=== PATIENT | male | born 1970 | race Caucasian/White ===

== ENCOUNTER 2016-10-10 21:04 | Observation (INO) | payer OTHER ==
[2016-10-10 21:00] VITALS: PULSE 69
[2016-10-10 21:30] VITALS: BP 144/77; PULSE 67; RESP 18; TEMP 97.7; O2SAT 99
[2016-10-10 22:00] VITALS: PULSE 59
--- NOTE | 2016-10-10 22:11 | HHI.HP ---
HPI Service CP Hospitalists Primary Care Physician Non-Staff Admission Diagnosis nausea, vomiting, LUQ cramping, elevated troponin Chief Complaint: N/V, LUQ pain Travel History International Travel<30 Days: No Contact w/Intl Traveler <30 Da: No History of Present Illness 45 y.o. relatively healthy WM transferred from [facility] due to n/v with +Trop I. Denies CP or SOB. has had intermittent N/V/D over last 2.5 weeks. No f/c. No other sick in household. Tried TUMS w/o relief. +a/w food intake. Last emesis appx 1 week ago. Hasn't been eating much over last week. EKG with no worrisome findings, but trop I modestly elevated. Pt has had intermittent GI issues for years, but generally resolves w/i a few days. He plays full court basketball 2-3x/week w/o chest pain including w/i last few days. No immed FH of CAD. Previous smoker Review of Systems Constitutional: DENIES: Diaphoretic episodes, Fatigue, Fever, Weight gain, Weight loss, Chills, Dizziness, Change in appetite, Night Sweats Endocrine: DENIES: Heat/cold intolerance, Polydipsia, Polyuria, Polyphagia Eyes: DENIES: Blurred vision, Diplopia, Eye inflammation, Eye pain, Vision loss , Photosensitivity, Double Vision Ears, nose, mouth, throat: DENIES: Tinnitus, Hearing loss, Vertigo, Nasal discharge, Oral lesions, Throat pain, Hoarseness, Ear Pain, Running Nose, Epistaxis, Sinus Pain, Toothache, Odynophagia Respiratory: DENIES: Apneas, Cough, Snoring, Wheezing, Hemoptysis, Sputum production, Shortness of breath Cardiovascular: DENIES: Chest pain, Palpitations, Syncope, Dyspnea on Exertion , PND, Lower Extremity Edema, Orthopnea, Claudication Gastrointestinal: COMPLAINS OF: Abdominal pain, Diarrhea, Nausea, Reflux, Vomiting, Anorexia, DENIES: Black stools, Bloody stools, BRB per rectum, Constipation, GERD, Difficulty Swallowing, See HPI Musculoskeletal: DENIES: Joint pain, Muscle aches, Stiffness, Joint Swelling, Back pain, Neck pain Integumentary: DENIES: Abnormal pigmentation, Nail changes, Pruritus, Rash Hematologic/lymphatic: DENIES: Bruising, Lymphadenopathy Immunologic/allergic: DENIES: Eczema, Urticaria Neurologic: DENIES: Abnormal gait, Headache, Localized weakness, Paresthesias, Seizures, Speech Problems, Tremor, Poor Balance Past Family Social History Past Medical History Negative per pt Past Surgical History Vasectomy Reported Medications none Allergies: Coded Allergies: No Known Allergies (Unverified , 10/10/16) Family History No CAD except in GF who was 80 y.o. when dx Social History No tobacco in 3 yrs, smoked 1ppd for appx 20 yrs prior; uses Ecig now No regular EtOH Denies Illicits Works in golf sales Physical Exam Physical Exam GENERAL: This is a well-nourished, well-developed patient, in no apparent distress. a/o, cooperative SKIN: No rashes, ecchymoses or lesions. Cool and dry. HEAD: Atraumatic. Normocephalic. No temporal or scalp tenderness. EYES: Pupils equal round and reactive. Extraocular motions intact. No scleral icterus. No injection or drainage. ENT: Nose without bleeding, purulent drainage or septal hematoma. Throat without erythema, tonsillar hypertrophy or exudate. Uvula midline. Airway patent. NECK: Trachea midline. No JVD or lymphadenopathy. Supple, nontender, no meningeal signs. CARDIOVASCULAR: Regular rate and rhythm without murmurs, gallops, or rubs. RESPIRATORY: Clear to auscultation. Breath sounds equal bilaterally. No wheezes , rales, or rhonchi. GASTROINTESTINAL: Abdomen soft, non-tender, nondistended. No hepato-splenomegaly , or palpable masses. No guarding. BS wnl. MUSCULOSKELETAL: Extremities without clubbing, cyanosis, or edema. No joint tenderness, effusion, or edema noted. No calf tenderness. Negative Homans sign bilaterally. NEUROLOGICAL: Awake and alert. Cranial nerves II through XII intact. Motor and sensory grossly within normal limits. Five out of 5 muscle strength in all muscle groups. Normal speech. Imaging see [facility] visit Assessment and Plan Problem List: (1) Troponin level elevated Status: Acute Plan: ? etiology. EKG OK and no CP. Will check another set enzymes. Likely stress test tomorrow AM Cardiology consulted. (2) Abdominal pain Status: Acute Plan: will try zofran. labs, imaging reviewed from [facility] visit Code Status full Discussed Condition With Pt and ER MD Tong,Collins Kingsley MD PhD October 10, 2016 22:11
[2016-10-10] MEDS ORDERED: ONDANSETRON HCL 4 MG/2 ML VIAL IV PUSH PRN (22:15)
[2016-10-10 23:00] VITALS: PULSE 60
[2016-10-10 23:45] VITALS: PULSE 77
[2016-10-11] VITALS (24 sets, daily range): BP systolic 121–155; BP diastolic 60–91; PULSE 47–78; RESP 18; TEMP 97.2–98.4; O2SAT 97–99
[2016-10-11] MEDS: PANTOPRAZOLE SOD 40 MG DELAYED RELEASE TAB PO SCH (05:34)
[2016-10-11] MEDS ORDERED: SODIUM CHLOR 0.9% 1000 ML INJ 1,000 ML IV SCH (08:40)
[2016-10-11] MEDS: ASPIRIN EC 325 MG TABEC PO SCH (09:21)
--- NOTE | 2016-10-11 09:48 | MB ---
cc: MARKOS ELIAS DATE OF CONSULTATION: 10/11/2016 INDICATION Elevated troponin. HISTORY OF PRESENT ILLNESS This is a very nice 45-year-old gentleman who was actually transferred from the [facility] secondary to slightly elevated troponin. The patient over the course of the past two and a half weeks had some intermittent nausea, vomiting, diarrhea. He has had decreased p.o. intake. He has tried Tums. He says his last meal was actually on Sunday. He is pretty dehydrated and finally his decided to talk him into going to the emergency department. There they bart a troponin, was 0.14 and he was transferred over here. He denies any chest pain. He is very active, actually plays full court basketball a couple times a week without any chest pain symptoms. He has no significant early family history of coronary disease or any cardiovascular risk factors. He is currently chest pain free. Electrocardiogram is unremarkable. PAST MEDICAL HISTORY Negative. ALLERGIES No known drug allergies. FAMILY HISTORY Denies any family history of early coronary artery disease, sudden cardiac . SOCIAL HISTORY He smoked about a pack a day for 20 years but stopped smoking about 3 years ago. Denies any alcohol, or drug use. REVIEW OF SYSTEMS 12-point review of systems was performed and negative unless otherwise noted in the history of present illness. PHYSICAL EXAMINATION VITAL SIGNS: Temperature 97, heart rate is in the 50s, blood pressure is 127/76 mmHg. GENERAL: In general alert and oriented x3, in no acute distress. HEENT: Exam shows pupils reactive to light and accommodation. Extraocular movements are intact. NECK: No elevation in jugular venous distention. No thyromegaly or lymphadenopathy. No carotid bruits. LUNGS: Clear to auscultation bilaterally. CARDIOVASCULAR: Regular rate and rhythm without murmurs, rubs or gallops. ABDOMEN: Nontender, nondistended. Good bowel sounds. No hepatosplenomegaly. EXTREMITIES: No clubbing, cyanosis or edema. Good peripheral pulses. Cranial nerves intact. Motor sensory grossly intact. LABORATORY DATA Troponin 0.14. ELECTROCARDIOGRAM Sinus bradycardia. No ischemic changes. ASSESSMENT 1. Elevated troponin. 2. Nausea, vomiting. PLAN The patient has very atypical presentation for acute coronary syndrome. Electrocardiogram is unremarkable. His only real risk factor is prior smoking history. He is active without any exertional chest pain, although this in theory could be an anginal equivalent. I do not feel that this is the case. I suspect that he is just severely dehydrated and he has some retention of troponin from excretion. We will see where the troponin trends. If it stays in this intermediate level, I think a stress test would be fairly reasonable. I would recommend aggressive hydration. If the troponin trends significantly higher, then he will need a heart catheterization. He is bradycardic but I suspect that is due to good cardiac index in young age. MD PASTORA Mckay/BURTON /8:41 AM /9:11 AM
--- NOTE | 2016-10-11 10:13 | EC ---
Study Study Date:10/11/2016 STUDY CONCLUSIONS SUMMARY - Left ventricle: The cavity size was normal. Wall thickness was normal. Systolic function was normal. The estimated ejection fraction was in the range of 55% to 60%. Wall motion was normal; there were no regional wall motion abnormalities. - Tricuspid valve: Mild regurgitation. If LV function is below 40, please consider prescribing an ACEI or ARB or document rationale for non-use. PROCEDURE DATA STUDY STATUS: Elective. Procedure: Transthoracic echocardiography. Image quality was good. Scanning was performed from the parasternal, apical, and subcostal acoustic windows. Study completion: The patient tolerated the procedure well. Transthoracic echocardiography. M-mode, complete 2D, complete spectral Doppler, and color Doppler. Patient status: Inpatient. CARDIAC ANATOMY LEFT VENTRICLE: The cavity size was normal. Wall thickness was normal. Systolic function was normal. The estimated ejection fraction was in the range of 55% to 60%. Wall motion was normal; there were no regional wall motion abnormalities. AORTIC VALVE: Trileaflet; normal thickness leaflets. Doppler: Transvalvular velocity was within the normal range. There was no stenosis. No regurgitation. AORTA: Aortic root: The aortic root was normal in size. MITRAL VALVE: Structurally normal valve. Doppler: Transvalvular velocity was within the normal range. There was no evidence for stenosis. No regurgitation. LEFT ATRIUM: The atrium was normal in size. RIGHT VENTRICLE: The cavity size was normal. Wall thickness was normal. PULMONIC VALVE: Doppler: Transvalvular velocity was within the normal range. There was no evidence for stenosis. No regurgitation. TRICUSPID VALVE: Structurally normal valve. Doppler: Transvalvular velocity was within the normal range. Mild regurgitation. PULMONARY ARTERY: The main pulmonary artery was normal-sized. Systolic pressure was within the normal range. RIGHT ATRIUM: The atrium was normal in size. PERICARDIUM: There was no pericardial effusion. SYSTEMIC VEINS: Inferior vena cava: The vessel was normal in size. BASIC MEASUREMENTS ADULT NORMAL Left ventricle LV internal dimension, ED, chordal level, 50.7 mm 43-52 PLAX LV internal dimension, ES, chordal level, 36.8 mm 23-38 PLAX Fractional shortening, chordal level, PLAX *27 % >29 LV posterior wall thickness, ED 9.37 mm IVS/LVPW ratio, ED 1.06 <1.3 Ventricular septum Septal thickness, ED 9.92 mm Left atrium Anterior-posterior dimension 35 mm Right ventricle RV internal dimension, ED, PLAX 21.8 mm 19-38 DOPPLER MEASUREMENTS ADULT NORMAL Aortic valve Peak velocity, S 143 cm/s Mitral valve Peak E-wave velocity 53.3 cm/s Peak A-wave velocity 53.8 cm/s Peak E/A ratio 1 Tricuspid valve Regurgitant peak velocity 142 cm/s Peak RV-RA gradient, S 8 mm Hg Maximal regurgitant velocity 142 cm/s LEGEND: Mean values are shown as u=mean value. Asterisk (*) manley values outside specified normal range. Prepared and signed by Collin Devries [id number]
--- NOTE | 2016-10-11 14:40 | TR ---
Date Performed: 10/11/2016 Time Performed: 10:43:32 DOCTOR: Kevin Crook DRUG LIST: CLINICAL HISTORY: REASON FOR TEST: REASON FOR ENDING: OBSERVATION: CONCLUSION: WARREN PROTOCOL. NO CP OR SOB.Maximum JN=587 % Max HR Achieved=87.0% Maximum TO=139/8 4 Total Exercise Time=7:12 COMMENTS: Patient exercised using the Warren protocol. No electrocardiographic changes were seen to suggest ischemia. Hemodynamic response to exercise was normal. No significant arrhythmia was prese nt.
--- NOTE | 2016-10-11 16:39 | HHI.PR ---
Objective Vitals Vital Signs Date Time Temp Pulse Resp B/P Pulse Ox O2 Delivery O2 Flow Rate FiO2 10/11/16 16:07 98.4 71 18 145/86 97 10/11/16 10:00 74 10/11/16 09:00 75 10/11/16 08:00 75 10/11/16 08:00 97.9 65 18 155/88 97 10/11/16 06:00 54 10/11/16 05:00 50 10/11/16 04:00 50 10/11/16 03:37 97.2 56 18 127/76 99 10/11/16 03:35 55 10/11/16 03:00 54 10/11/16 02:00 58 10/11/16 01:00 58 10/11/16 00:00 97.6 64 18 142/84 98 10/10/16 23:45 77 10/10/16 23:00 60 10/10/16 22:00 59 10/10/16 21:30 97.7 67 18 144/77 99 10/10/16 21:00 69 10/10/16 10/10/16 10/11/16 15:00 23:00 07:00 Output Total 800 ml Balance -800 ml Output Urine Total 800 ml # Bowel Movements 0 Other Results Laboratory Tests Test 10/10/16 22:19 Troponin I 0.14 NG/ML Imaging CT Abd/pelvis (10/10/16) 1. Hypodense liver characteristic of diffuse steatosis. 2. 16mm left adrenal gland nodule. 3. No evidence of acute intestinal abnormality, hydronephrosis or acute inflammatory disease. CXR (10/10/16) - No acute disease. Objective Remarks General: NAD, AAOx3 Chest: CTA Cardiac: Regular Abd: +BS, soft ND/NT Ext: No edema A/P Problem List: (1) Troponin level elevated Status: Acute Plan: - Pt transferred from [facility] on 10[facility]10[facility]16 with complaints of abdominal pain, N /V and diarrhea on/off x 2.5 weeks. - His workup revealed mildly elevated Troponin, the etiology of which was unclear. - Pt denies any CP and No EKG changes noted. - Cardiology consulted. - Pt had Stress test this morning which was reportedly negative. (2) Abdominal pain Status: Acute Plan: - CT Abd/pelvis was negative. - LFTs and Lipase at admission were WNL. - Mary Travis October 11, 2016 16:39 Shawn Trejo DO October 11, 2016 20:28
--- NOTE | 2016-10-11 17:34 | HHI.PR ---
Subjective Remarks Pt c/o N/V/D x 3 weeks. Pt states that this started after eating wings at a restaurants. Since that time he continues to have intermittent episodes of N/V/D. Pt's current episode started 2 days ago. Pt denies n/v/d today, but states that he is afraid to eat and develop n/v Pt did tolerate earing clears for dinner. Denies chest pain or palpitations. Objective Vitals Vital Signs Date Time Temp Pulse Resp B/P Pulse Ox O2 Delivery O2 Flow Rate FiO2 10/11/16 16:07 98.4 71 18 145/86 97 10/11/16 10:00 74 10/11/16 09:00 75 10/11/16 08:00 75 10/11/16 08:00 97.9 65 18 155/88 97 10/11/16 06:00 54 10/11/16 05:00 50 10/11/16 04:00 50 10/11/16 03:37 97.2 56 18 127/76 99 10/11/16 03:35 55 10/11/16 03:00 54 10/11/16 02:00 58 10/11/16 01:00 58 10/11/16 00:00 97.6 64 18 142/84 98 10/10/16 23:45 77 10/10/16 23:00 60 10/10/16 22:00 59 10/10/16 21:30 97.7 67 18 144/77 99 10/10/16 21:00 69 10/10/16 10/10/16 10/11/16 15:00 23:00 07:00 Output Total 800 ml Balance -800 ml Output Urine Total 800 ml # Bowel Movements [address] Abd/pelvis (10/10/16) 1. Hypodense liver characteristic of diffuse steatosis. 2. 16mm left adrenal gland nodule. 3. No evidence of acute intestinal abnormality, hydronephrosis or acute inflammatory disease. CXR (10/10/16) - No acute disease. Objective Remarks General: NAD, AAOx3 Chest: CTA Cardiac: Regular Abd: +BS, soft ND/NT Ext: No edema A/P Problem List: (1) Troponin level elevated Status: Acute Plan: - comgmt with Cardiology - negative stress test - Echocardiogram (5/10/17) --> EF 55% - troponins were elevated, but flat pattern (2) Abdominal pain Status: Acute Plan: - CT Abd/pelvis was negative. - LFTs and Lipase at admission were WNL. - continue IVFs - repeat labs in AM - start protonix, pt c/o acid reflux symptoms - request GI consult - NPO after MN, for possible EGD 10/12/16 Shawn Trejo DO October 11, 2016 17:34
--- NOTE | 2016-10-11 19:52 | EKG ---
Date Performed: 10/10/2016 Time Performed: 22:08:04 PTAGE: 45 years EKG: Sinus bradycardia with sinus arrhythmia IV conduction defect Abnormal ECG Compared to prior tracing no significant change DOCTOR: Charles Little Interpretating Date/Time 10/11/2016 19:50:57
[2016-10-11] MEDS: 1/2 NS + KCL 20 MEQ INJ 1,000 ML IV SCH (20:53)
[2016-10-12] VITALS (13 sets, daily range): BP systolic 122–148; BP diastolic 76–82; PULSE 50–74; RESP 18; TEMP 97.8–98.4; O2SAT 97–100
[2016-10-12 05:39] LABS: AUTOMATED NEUTROPHIL # 3.9 TH/MM3 (1.8-7.7); BASOPHIL % 0.4 % (0.0-2.0); EOSINOPHIL # 0.1 TH/MM3 (0-0.4); HEMATOCRIT 42.3 % (39.0-51.0); HEMO FLAGS DIFF FINAL; LYMPH % 35.6 % (9.0-44.0); LYMPHOCYTE # 2.7 TH/MM3 (1.0-4.8); MEAN CELL VOLUME 82.1 FL (80.0-100.0); MEAN CORPUSCULAR HEMOGLOBIN 28.4 PG (27.0-34.0); MEAN CORPUSCULAR HGB CONC 34.6 % (32.0-36.0); MONO % 11.9 % (0.0-8.0); NEUT % 51.1 % (16.0-70.0); PLATELET COUNT 222 TH/MM3 (150-450); RED BLOOD COUNT 5.15 MIL/MM3 (4.50-5.90); RED CELL DISTRIBUTION WIDTH 12.9 % (11.6-17.2); WHITE BLOOD COUNT 7.7 TH/MM3 (4.0-11.0)
[2016-10-12] MEDS: PANTOPRAZOLE SOD 40 MG DELAYED RELEASE TAB PO SCH (05:40)
[2016-10-12] MEDS: 1/2 NS + KCL 20 MEQ INJ 1,000 ML IV SCH (05:41)
[2016-10-12 06:01] LABS: BICARBONATE 29.2 MEQ/L (21.0-32.0); MAGNESIUM 2.3 MG/DL (1.5-2.5); POTASSIUM 4.1 MEQ/L (3.5-5.1)
[2016-10-12 07:31] LABS: INDIRECT BILIRUBIN 0.5 MG/DL (0.0-0.8); TOTAL BILIRUBIN ADULT 0.6 MG/DL (0.2-1.0)
[2016-10-12] MEDS: ASPIRIN EC 325 MG TABEC PO SCH (08:48)
--- NOTE | 2016-10-12 10:47 | PD.CONS ---
HPI History of Present Illness This is a 45 year old [gentleman] sent from [place] [facility] for intermittent n/v/ diarrhea, abdominal pain. He was found to have elevated Troponin but denies chest pain or cardiac issues and says he is active. 3 weeks ago he had onset n/ v and diarrhea, thought it was food poisining. Subsequently he experienced onset of mid abdominal pain and intermittent n/v along with periods of seeming improvement. THe diarrhea did resolve after about a week but he would still have abdominal discomfort and also borborygmus. He was able to control his symptoms somewhat just drinking ATkins shake for nutrition. 4 days ago he did have a formed BM. In the last week he has been having increased belching even with water consumption. The abdominal pain is now constant. For the last 5 days he has been urinating more than usual. Denies blood in stool, tarry stool. Never had colonoscopy or EGD. (Fadumo Milner) PFSH Past Medical History none Past Surgical History none (Fadumo Milner) Coded Allergies: No Known Allergies (Unverified , 10/10/16) Medications Current Medications Medications (Trade) Dose Ordered Sig/Saravanan Route PRN Reason Start Time Stop Time Status Last Admin Dose Admin Ondansetron HCl (Zofran Inj) 4 mg Q6H PRN IV PUSH n/v 10/10/16 22:15 Pantoprazole Sodium (Protonix) 40 mg DAILY@06 PO 10/11/16 06:00 10/12/16 05:40 Aspirin 325 mg 325 mg DAILY PO 10/11/16 09:00 10/12/16 08:48 Potassium Chloride/Sodium Chloride (1/2 NS + KCl 20 Meq Inj) 1,000 ml @ 100 mls/hr Q10H IV 10/11/16 17:30 10/12/16 05:41 Family History breast cancer - mother Social History rare ETOH former smoker, now uses ecig no drugs (Fadumo Milner) Review of Systems Constitutional: COMPLAINS OF: Fever, Chills Eyes: DENIES: Blurred vision Ears, nose, mouth, throat: DENIES: Hearing loss Respiratory: DENIES: Cough Cardiovascular: DENIES: Chest pain, Palpitations Gastrointestinal: COMPLAINS OF: Abdominal pain, Nausea, Vomiting, DENIES: Black stools, Bloody stools, Constipation, Diarrhea, Hematemesis Genitourinary: COMPLAINS OF: Urinary frequency Musculoskeletal: DENIES: Joint pain Integumentary: DENIES: Abnormal pigmentation Hematologic/lymphatic: DENIES: Bruising Neurologic: DENIES: Abnormal gait Psychiatric: DENIES: Confusion (Fadumo Milner) GI Exam Vitals I&O Vital Signs Date Time Temp Pulse Resp B/P Pulse Ox O2 Delivery O2 Flow Rate FiO2 10/12/16 06:00 52 10/12/16 05:00 50 10/12/16 04:00 52 10/12/16 03:33 98.4 61 18 122/77 97 10/12/16 03:00 56 10/12/16 02:00 52 10/12/16 01:00 74 10/12/16 00:00 50 10/11/16 23:30 98.1 47 18 121/60 97 10/11/16 23:00 53 10/11/16 22:00 58 10/11/16 21:00 66 10/11/16 20:00 66 10/11/16 19:25 98.1 67 18 137/91 97 10/11/16 19:00 68 10/11/16 17:52 75 10/11/16 16:07 98.4 71 18 145/86 97 10/11/16 15:00 78 10/11/16 12:00 78 10/11/16 11:00 76 I/O 10/11/16 10/11/16 10/11/16 10/12/16 10/12/16 10/12/16 07:00 15:00 23:00 07:00 15:00 23:00 Intake Total 480 ml Output Total 800 ml 600 ml Balance -800 ml -120 ml Intake Oral 480 ml Output Urine Total 800 ml 600 ml # Bowel Movements 0 Laboratory Test 10/12/16 04:40 White Blood Count 7.7 TH/MM3 Red Blood Count 5.15 MIL/MM3 Hemoglobin 14.6 GM/DL Hematocrit 42.3 % Mean Corpuscular Volume 82.1 FL Mean Corpuscular Hemoglobin 28.4 PG Mean Corpuscular Hemoglobin 34.6 % Concent Red Cell Distribution Width 12.9 % Platelet Count 222 TH/MM3 Mean Platelet Volume 7.9 FL Neutrophils (%) (Auto) 51.1 % Lymphocytes (%) (Auto) 35.6 % Monocytes (%) (Auto) 11.9 % Eosinophils (%) (Auto) 1.0 % Basophils (%) (Auto) 0.4 % Neutrophils # (Auto) 3.9 TH/MM3 Lymphocytes # (Auto) 2.7 TH/MM3 Monocytes # (Auto) 0.9 TH/MM3 Eosinophils # (Auto) 0.1 TH/MM3 Basophils # (Auto) 0.0 TH/MM3 CBC Comment DIFF FINAL Differential Comment Sodium Level 139 MEQ/L Potassium Level 4.1 MEQ/L Chloride Level 102 MEQ/L Carbon Dioxide Level 29.2 MEQ/L Anion Gap 8 MEQ/L Blood Urea Nitrogen 15 MG/DL Creatinine 1.05 MG/DL Estimat Glomerular Filtration 77 ML/MIN Rate Random Glucose 96 MG/DL Calcium Level 8.5 MG/DL Magnesium Level 2.3 MG/DL Total Bilirubin 0.6 MG/DL Direct Bilirubin 0.1 MG/DL Indirect Bilirubin 0.5 MG/DL Aspartate Amino Transf 12 U/L (AST/SGOT) Alanine Aminotransferase 34 U/L (ALT/SGPT) Alkaline Phosphatase 50 U/L Total Protein 7.3 GM/DL Albumin 4.1 GM/DL Physical Examination HEENT: EOMI, normocephalic; atraumatic; no jaundice. CHEST: CTA CARDIAC: RRR ABDOMEN: Soft, nondistended, nontender; no hepatosplenomegaly; bowel sounds are present in all four quadrants. EXTREMITIES: No clubbing, cyanosis, or edema. SKIN: Normal; no rash; no jaundice. SUB MASTER: No focal deficits; alert and oriented times three. (Fadumo Milner) Assessment and Plan Plan ASSESSMENT - N/V, epigastric abdominal pain. 3 weeks ago n/v with subsequent onset mid epigastric pain and diarrhea. Diarrhea has since resolved but pt still with dyspepsia and n/v. He was found to have elevated troponins and stress test is pending but does not appear to be significant and he denies chest pain. D/w DR Devries and is okay to to EGD. PLAN - EGD today - obtain consents - After EGD, ANAND - LFTs - US liver - further recommendations after results of above This pt seen by myself and Dr Peterson and this note is written on her behalf ( Fadumo Milner) Physician Comments seen, examined agree with above (Madelyn Peterson MD) Fadumo Milner October 12, 2016 10:47 Madelyn Peterson MD October 12, 2016 19:06
--- NOTE | 2016-10-12 11:46 | RADRPT ---
EXAM DATE/TIME: 10/12/2016 10:00 [place] COMPARISON: No previous studies available for comparison. INDICATIONS : Nausea and vomiting. MEDICAL HISTORY : Nausea and vomiting. SURGICAL HISTORY : None. ENCOUNTER: Initial ACUITY: 3 weeks PAIN SCORE: 4/10 LOCATION: Bilateral upper quadrant MEASUREMENTS: LIVER: 16.8 cm length COMMON DUCT: 5 mm RIGHT KIDNEY: 11.3 x 6.4 x 5.7 cm SPLEEN: 12.1 cm length FINDINGS: Liver is echogenic most haracteristic of fatty infiltration. Portal venous flow normal direction. Sma ll 6 mm gallbladder polyp. There is some sludge in gallbladder neck. No definite gallstones. No gallb ladder wall thickening. Common bile duct is normal at 5 mm. Right kidney measures 11 cm in length wit hout hydronephrosis. No free fluid. Spleen unremarkable. CONCLUSION: 1. Fatty infiltration of the liver. 2. Gallbladder sludge with small polyp. No gallbladder wall thickening or biliary ductal dilatation. Grey Patrick MD on October 12, 2016 at 11:38 Board Certified Radiologist. This report was verified electronically.
--- NOTE | 2016-10-12 11:59 | GIPROC ---
[facility] [address] [facility]. [facility], [id number] EGD PROCEDURE REPORT EXAM DATE: 10/12/2016 PATIENT NAME: Pedro Paula MR #: [id number] BIRTHDATE: 1970 ATTENDING: Madelyn Peterson MD ORDER #: [id number] WASTE TREATMENT OPERATOR: Vickey Gomez and Ivonne Durant STATUS: inpatient INDICATIONS: The patient is a 45 yr old male here for an EGD due to nausea, vomiting PROCEDURE PERFORMED: EGD w/ biopsy MEDICATIONS: None and Per Anesthesia. TOPICAL ANESTHETIC: none CONSENT: The patient understands the risks and benefits of the procedure and understands that these risks include, but are not limited to: sedation, allergic reaction, infection, perforation and/or bleeding. Alternative means of evaluation and treatment include, among others: physical exam, x-rays, and/or surgical intervention. The patient elects to proceed with this endoscopic procedure. medical equipment was checked for proper function. Hand hygiene and appropriate measures for infection prevention was taken. After the risks, benefits and alternatives of the procedure were thoroughly explained, Informed consent was verified, confirmed and timeout was successfully executed by the treatment team. The patient was anesthetized with topical anesthesia and the Pentax [id number] endoscope was introduced through the mouth and advanced to the second portion of the duodenum. Retroflexed views revealed a hiatal hernia The gastroscope was then slowly withdrawn and removed. Gastritis antrum-biopsy esophagitis distal esophagus-biopsy duodenum normal-biopsy. ADVERSE EVENTS: There were no complications. IMPRESSIONS: 1. Gastritis antrum-biopsy esophagitis distal esophagus-biopsy duodenum normal-biopsy 2. Retroflexed views revealed a hiatal hernia RECOMMENDATIONS: 1. Await biopsy results. Biopsy results will not be ready for 7-10 days. If you don't hear from us in two weeks, call our office for biopsy results. 2. Anti-reflux regimen 3. Continue PPI 4. Avoid NSAIDS 5. Advance diet PATIENT CONDITION: stable DISPOSITION: Inpatient REPEAT EXAM: EGD pending biopsy results Madelyn Peterson MD eSigned: Madelyn Peterson MD 10/12/2016 11:58 AM cc: PATIENT NAME: Pedro Paula MR#: [id number]
[2016-10-12] MEDS ORDERED: PROPOFOL 200 MG/20 ML AMP IV ONE ×2 (12:00→13:00)
[2016-10-12] MEDS ORDERED: PRIL20CA9 PO (12:27)
--- NOTE | 2016-10-12 12:30 | HHI.PR ---
Subjective Remarks n/v/d resolved Pt is tolerating PO intake. Objective Vitals Vital Signs Date Time Temp Pulse Resp B/P Pulse Ox O2 Delivery O2 Flow Rate FiO2 10/12/16 11:58 61 16 128/67 96 10/12/16 11:53 66 16 148/83 96 10/12/16 11:48 97.7 75 16 148/74 97 10/12/16 08:00 98.0 69 18 126/76 98 10/12/16 06:00 52 10/12/16 05:00 50 10/12/16 04:00 52 10/12/16 03:33 98.4 61 18 122/77 97 10/12/16 03:00 56 10/12/16 02:00 52 10/12/16 01:00 74 10/12/16 00:00 50 10/11/16 23:30 98.1 47 18 121/60 97 10/11/16 23:00 53 10/11/16 22:00 58 10/11/16 21:00 66 10/11/16 20:00 66 10/11/16 19:25 98.1 67 18 137/91 97 10/11/16 19:00 68 10/11/16 17:52 75 10/11/16 16:07 98.4 71 18 145/86 97 10/11/16 15:00 78 10/11/16 10/11/16 10/12/16 14:59 22:59 06:59 Intake Total 480 ml Output Total 600 ml Balance -120 ml Intake Oral 480 ml Output Urine Total 600 ml Result Diagram: 10/12/16 0440 10/12/[address] Abd/pelvis (10/10/16) 1. Hypodense liver characteristic of diffuse steatosis. 2. 16mm left adrenal gland nodule. 3. No evidence of acute intestinal abnormality, hydronephrosis or acute inflammatory disease. CXR (10/10/16) - No acute disease. Objective Remarks General: NAD, AAOx3 Chest: CTA Cardiac: Regular Abd: +BS, soft ND/NT Ext: No edema A/P Problem List: (1) Troponin level elevated Status: Acute Plan: - comgmt with Cardiology - negative stress test - Echocardiogram (10/11/16) --> EF 55% - troponins were elevated, but flat pattern (2) Abdominal pain Status: Acute Plan: - CT Abd/pelvis was negative. - LFTs and Lipase at admission were WNL. - pt started on PPI, and will discharge on PO protonix - start protonix, pt c/o acid reflux symptoms - EGD (10/12/16) with Dr. Peterson --> mild esophagitis and gastritis - HIDA scan (10/12/16) --> negative - will d/c to home and f/u with GI outpt - see orders Shawn Trejo DO October 12, 2016 12:30
--- NOTE | 2016-10-12 17:45 | RADRPT ---
EXAM DATE/TIME: 10/12/2016 13:39 [facility] COMPARISON: No previous studies available for comparison. INDICATIONS : Abdominal pain DOSE: 4.4 mCi Tc99m Mebrofenin IV MEDICAL HISTORY : None. SURGICAL HISTORY : Vasectomy ENCOUNTER: Initial ACUITY: 2 weeks PAIN SCALE: 2/10 LOCATION: Left upper quadrant TECHNIQUE: Following the intravenous administration of radiotracer, dynamic sequential images were performed wit h continuous acquisition. FINDINGS: HEPATIC KINETICS: There is prompt uptake of radiotracer in the liver. No focal defects are seen. There is normal rate of washout from the hepatic parenchyma. BILIARY CLEARANCE: Activity is first seen in the extrahepatic biliary system at the 15 minutes. There is normal excreti on into the small bowel. GALLBLADDER: Activity is first seen in the gallbladder at 15 minutes. Common bile duct kinetics are normal and th ere is no evidence of biliary obstruction. BILIARY ENTRIC REFLUX: None observed. CONCLUSION: Normal examination for a patient of this age. Grey Patrick MD on October 12, 2016 at 17:41 Board Certified Radiologist. This report was verified electronically.
== END 2016-10-12 17:45 | disposition home or self-care (01) ==
LOC: NEDDLT 21:04 → HCIS 21:14
PROVIDERS: ADMIT Hospitalist; ATTEND Hospitalist
DX: K29.50 Unspecified chronic gastritis without bleeding (principal); K44.9 Diaphragmatic hernia without obstruction or gangrene; R79.89 Other specified abnormal findings of blood chemistry; K29.80 Duodenitis without bleeding; K31.9 Disease of stomach and duodenum, unspecified; R00.1 Bradycardia, unspecified; Z87.891 Personal history of nicotine dependence
CPT/HCPCS: 43239; 71010; 74177; 76705; 78226; 80048; 80053; 80076; 81001; 82550; 82552; 83690; 83735; 84484; 85025; 88305; 88312; 93005; 93017; 93306; 96360; 99285; A9537; G0378; J7030; Q9963; Q9967; 99281